=== PATIENT | male | born 1985 | race African-American/Black ===

== ENCOUNTER 2017-03-26 14:11 | Emergency (ER) | payer MEDICARE, MEDICAID ==
[2017-03-26] MEDS ORDERED: NS 0.9% 1000 ML* 1,000 ML IV ONE (14:41)
[2017-03-26 15:02] LABS: Venous Bicarbonate HCO3 22.8 mmol/L (24-28)
[2017-03-26 15:04] LABS: Hematocrit 46 % (42-52); Hemoglobin 15.6 g/dl (14.0-18.0); Mean Corpuscular HGB Conc 34 g/dl (31-36); Mean Corpuscular Hemoglobin 29 pg (27-31); Mean Corpuscular Volume 85 fL (80-94); Mean Platelet Volume 9 um3 (7.4-10.4); Red Blood Count 5.44 10^6/ul (4.0-5.4); Red Cell Distribution Width 13 % (10.5-15); White Blood Count 5.1 10^3/ul (3.5-10.8)
[2017-03-26 15:09] LABS: Urine Bilirubin Negative (Negative); Urine Glucose 3+(>=500 mg/dL) (Negative); Urine Nitrite Negative (Negative)
[2017-03-26 15:35] LABS: Albumin 3.8 g/dL (3.2-5.2); BUN/Creatinine Ratio 7.1 (8-20); C Reactive Protein 2.13 mg/L (< 5.00); Calcium 8.9 mg/dL (8.6-10.3); EGFR African American 111.3 (>60); EGFR Non-African American 86.5 (>60); Globulin 2.9 g/dL (2-4); Potassium 4.3 mmol/L (3.5-5.0); Total Bilirubin 0.4 mg/dL (0.2-1.0); Total Protein 6.7 g/dL (6.4-8.9)
[2017-03-26] MEDS ORDERED: Insulin REGULAR(*) 1 UNITS UNIT IV PUSH ONE (16:24)
[2017-03-26 17:36] VITALS: BP 127/88
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
== END 2017-03-26 17:40 | disposition home or self-care (01) ==
LOC: ED 14:11
DX: E11.65 Type 2 diabetes mellitus with hyperglycemia (principal); E78.00 Pure hypercholesterolemia, unspecified; I10 Essential (primary) hypertension; I25.2 Old myocardial infarction; Z87.891 Personal history of nicotine dependence; Z79.4 Long term (current) use of insulin
CPT/HCPCS: 36415; 80053; 81003; 82803; 83605; 85025; 86140; 96360; 96374; 99282

== ENCOUNTER 2017-07-12 22:10 | Emergency (ER) | payer MEDICARE, MEDICAID ==
[2017-07-12] MEDS ORDERED: Insulin GLARGINE(*) 1 UNITS UNIT SUBCUT ONE (22:37)
[2017-07-12] MEDS ORDERED: Insulin ASPART (NF) 100 UNIT/ML VIAL SUBCUT ONE (22:38)
[2017-07-12] MEDS ORDERED: Insulin LISPRO* 1 UNITS UNIT SUBCUT ONE (23:03)
[2017-07-12 23:18] VITALS: BP 130/90
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
== END 2017-07-12 23:18 | disposition home or self-care (01) ==
LOC: ED 22:10
DX: E11.65 Type 2 diabetes mellitus with hyperglycemia (principal); H53.8 Other visual disturbances; Z87.891 Personal history of nicotine dependence
CPT/HCPCS: 99282

== ENCOUNTER 2018-07-14 20:59 | Emergency (ER) | payer MEDICARE, MEDICAID ==
[2018-07-14] MEDS ORDERED: NS 0.9% 1000 ML** 1,000 ML IV ONE (21:25)
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
[2018-07-14] MEDS ORDERED: Iodixanol* (CONTRAST) 320 MG/ML 100 ML SDV IV ONE (21:43)
[2018-07-14 22:06] LABS: ABS Basophils 0.1 10^3/ul (0-0.2); ABS Eosinophils 0 10^3/ul (0-0.6); ABS Lymphocytes 2.6 10^3/ul (1.0-4.8); ABS Monocytes 0.5 10^3/ul (0-0.8); ABS Neutrophils 4.7 10^3/ul (1.5-7.7); ABS Nucleated RBC 0 10^3/ul; Eosinophil % 0.5 %; Hematocrit 44 % (36-46); Hemoglobin 14.8 g/dL (14.0-18.0); Lymphocyte % 32.5 %; Mean Corpuscular HGB Conc 34 g/dL (31-36); Mean Corpuscular Hemoglobin 29 pg (27-31); Mean Corpuscular Volume 85 fL (80-94); Mean Platelet Volume 8.4 fL (7.4-10.4); Nucleated Red Blood Cells % 0.1; Platelet Count 367 10^3/uL (150-450); Red Blood Count 5.18 10^6 /uL (4.18-5.48); Red Cell Distribution Width 14 % (10.5-15)
[2018-07-14 22:14] LABS: Activated Partial Thrombo Time 30.3 seconds (26.0-36.3); INR 0.98 (0.77-1.02)
[2018-07-14 22:23] LABS: Albumin 3.8 g/dL (3.2-5.2); Albumin/Globulin Ratio 1.3 (1-3); BUN/Creatinine Ratio 9.7 (8-20); EGFR African American 99.4 (>60); EGFR Non-African American 82.2 (>60); Globulin 2.9 g/dL (2-4); HDL Cholesterol 43.7 mg/dL; Potassium 3.7 mmol/L (3.5-5.0); Total Bilirubin 0.3 mg/dL (0.2-1.0); Total Protein 6.7 g/dL (6.4-8.9)
[2018-07-14] MEDS ORDERED: LORazepam INJ* 2 MG/ML 1 ML VIAL IV PUSH ONE (22:27)
[2018-07-15 00:44] VITALS: BP 121/72
== END 2018-07-15 00:44 ==
LOC: ED 20:59
DX: F41.9 Anxiety disorder, unspecified (principal); F98.5 Adult onset fluency disorder; I66.01 Occlusion and stenosis of right middle cerebral artery; I10 Essential (primary) hypertension; H53.8 Other visual disturbances; R42 Dizziness and giddiness; R25.1 Tremor, unspecified; E11.9 Type 2 diabetes mellitus without complications; Z79.4 Long term (current) use of insulin; Z79.84 Long term (current) use of oral hypoglycemic drugs; E78.00 Pure hypercholesterolemia, unspecified; J45.909 Unspecified asthma, uncomplicated; F32.9 Major depressive disorder, single episode, unspecified; Z88.8 Allergy status to other drugs, medicaments and biological substances; Z87.891 Personal history of nicotine dependence
CPT/HCPCS: 36415; 70450; 70496; 70498; 80053; 80061; 83605; 84484; 85025; 85610; 85730; 93005; 96374; 99282; J2060; Q9967

== ENCOUNTER 2019-03-29 18:22 | Emergency (ER) | payer MEDICARE, MEDICAID ==
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
[2019-03-29] MEDS ORDERED: NS 0.9% 1000 ML** 1,000 ML IV ONE (18:53)
[2019-03-29 19:03] LABS: ABS Basophils 0.1 10^3/ul (0-0.2); ABS Lymphocytes 0.6 10^3/ul (1.0-4.8); ABS Monocytes 0.8 10^3/ul (0-0.8); ABS Neutrophils 13.8 10^3/ul (1.5-7.7); Hematocrit 44 % (42-52); Hemoglobin 15.2 g/dL (14.0-18.0); Mean Corpuscular HGB Conc 35 g/dL (31-36); Mean Corpuscular Hemoglobin 29 pg (27-31); Mean Corpuscular Volume 84 fL (80-94); Mean Platelet Volume 8.7 fL (7.4-10.4); Platelet Count 314 10^3/uL (150-450); Red Blood Count 5.22 10^6 /uL (4.18-5.48); Red Cell Distribution Width 13 % (10-15); White Blood Count 15.3 10^3/uL (3.5-10.8)
[2019-03-29 19:18] LABS: Acetaminophen < 15 mcg/mL; Alcohol < 10 mg/dL (<10); Salicylate < 2.50 mg/dL (<30)
[2019-03-29 19:19] LABS: ALT 19 U/L (7-52); AST 18 U/L (13-39); Albumin 4.2 g/dL (3.2-5.2); Albumin/Globulin Ratio 1.3 (1-3); Alkaline Phosphatase 73 U/L (34-104); Anion Gap 13 mmol/L (2-11); BUN/Creatinine Ratio 11.3 (8-20); Blood Urea Nitrogen 13 mg/dL (6-24); CO2 Carbon Dioxide 23 mmol/L (22-32); Calcium 9.6 mg/dL (8.6-10.3); Chloride 101 mmol/L (101-111); EGFR African American 87.1 (>60); Globulin 3.3 g/dL (2-4); Glucose 333 mg/dL (70-100); Sodium 137 mmol/L (135-145); Total Protein 7.5 g/dL (6.4-8.9)
--- NOTE | 2019-03-29 21:59 | ED ---
Progress - Progress Note Progress Note: This pt is a sign out to Dr. Arin MD at shift change 2200 03/29/[address] Reza MD pending sobriety. Re-Evaluation - Re-Evaluation First Eval Re-Evaluation Time: 01:52 Change: Improved Comment: Pt states that he is sober and prepared to go home. He will be discharged home. Course/Dx - Diagnoses Provider Diagnoses: Substance abuse Discharge ED - Sign-Out/Discharge Documenting (check all that apply): Patient Departure - discharge, Receiving Sign-Out Receiving patient FROM: Matt Cobb - Discharge Plan Condition: Stable Disposition: HOME Patient Education Materials: Polysubstance Abuse (ED), Opioid Use Disorder (ED) Referrals: Maddy Montes MD [Primary Care Provider] - 2 Days Additional Instructions: PLEASE FOLLOW UP WITH YOUR PRIMARY CARE PROVIDER IN 1-3 DAYS AND RETURN TO THE EMERGENCY DEPARTMENT FOR ANY NEW OR WORSENING SYMPTOMS. - Billing Disposition and Condition Condition: STABLE Disposition: Home - Attestation Statements Document Initiated by Scribe: Yes Documenting Scribe: Edson Severino Provider For Whom Lacieibe is Documenting (Include Credential): Caitlin Dillard MD Scribe Attestation: IEdson, scribed for Caitlin Dillard MD on 03/30/19 at 0640. Scribe Documentation Reviewed: Yes Provider Attestation: The documentation as recorded by the Edson bedolla accurately reflects the service I personally performed and the decisions made by me, Caitlin Dillard MD Status of Scribe Document: Viewed
[2019-03-30 00:31] LABS: Urine Appearance Cloudy; Urine Bilirubin Negative (Negative); Urine Blood Negative (Negative); Urine Color Yellow; Urine Glucose 3+(>=500 mg/dL) (Negative); Urine Ketones 2+ (Negative); Urine Nitrite Negative (Negative); Urine Protein 1+(30 mg/dL) (Negative); Urine Specific Gravity 1.032 (1.010-1.030); Urine Urobilinogen Negative (Negative)
[2019-03-30 00:34] LABS: Urine Bacteria Absent (Absent); Urine Red Blood Cell Absent (Absent); Urine White Blood Cell Trace(0-5/hpf) (Absent)
[2019-03-30 00:43] LABS: Urine Benzodiazepine Screen None Detected (None Detect); Urine Opiates Screen Presumptive Positive (None Detect)
--- OUTSIDE RECORDS SUMMARY | 2019-03-30 02:03 | XMS REPORT | Continuity of Care Document ---
:1985 External Reference #:[id number] Author Name Reese Pearce MD (transmitted by agent of provider Melinda Mcgarry) Address [address] [facility] [place] [address] Problems Active Problems Provider Date Obesity Reese Pearce MD Onset: 02/13/2019 Psychogenic impotence Reese Pearce MD Onset: 02/13/2019 Mood disorder Reese Pearce MD Onset: 02/13/2019 Generalized anxiety disorder Reese Pearce MD Onset: 02/13/2019 Essential hypertension Reese Pearce MD Onset: 02/13/2019 Type II diabetes mellitus uncontrolled Reese Pearce MD Onset: 02/13/2019 Social History Type Date Description Comments Sex Unknown Tobacco Use Start: Unknown End: Unknown Patient is a former smoker Smoking Status Reviewed: 02/13/19 Patient is a former smoker Allergies, Adverse Reactions, Alerts Active Allergies Reaction Severity Comments Date Haldol 02/13/2019 Medications Active Medications SIG Qnty Indications Ordering Date Provider Cialis take 5mg before 6tabs F52.21 Reese Pearce MD 02/13/2019 5mg Tablets sexual activity Lancets Super Thin 4 times daily and 100units E11.65 Reese Pearce MD 2018 28G as needed for Thin 28G Misc diabetes mellitus Pen [place] 07/01" use four times a 100units E11.65 Reese Pearce MD 2018 day and as needed 31G X 5 mm Misc for injecting insulin for sugar diabetes mellitus. Pharmacy okay to substitute as appropriate Lisinopril 1 by mouth every 30tabs Reese Pearce MD 5mg day Tablets Seroquel 1 by mouth at at 30tabs Reese Pearce MD 100mg bedtime Tablets Humalog Fernando sliding scale: 15ml Reese Pearce MD Kwikpen 100-149 2u, 150-199 100Unit/ML 4u, 200-249 6u, Solution Pen-Inject 250-299 8u, 300-349 10u, 350-400 12u, above 400 14u and call doctor Lanmadhav Solostar inject 50 units at 15ml Reese Pearce MD nighttime 100Unit/ML Solution Pen-Inject Immunizations Description No Information Available Vital Signs Date Vital Result Comment 02/13/2019 11:41am Height 74 inches 6'2" Weight 253.50 lb Heart Rate 84 /min BP Systolic 117 mmHg BP Diastolic 84 mmHg Body Temperature 97.4 F O2 % BldC Oximetry 97 % BMI (Body Mass Index) 32.5 kg/m2 Results Description No Information Available Procedures Description No Information Available Medical Devices Description No Information Available Encounters Description No Information Available Assessments Date Code Description Provider 02/13/2019 E11.65 Type 2 diabetes mellitus with hyperglycemia Reese Pearce MD 02/13/2019 I10 Essential (primary) hypertension Reese Pearce MD 02/13/2019 F41.1 Generalized anxiety disorder Reese Pearce MD 02/13/2019 F39 Unspecified mood [affective] disorder Reese Pearce MD 02/13/2019 F52.21 Male erectile disorder Reese Pearce MD 02/13/2019 E66.9 Obesity, unspecified Reese Pearce MD Plan of Treatment Future Appointment(s):03/27/2019 9:40 am - Reese Pearce MD at [facility] - [address] - Reese Pearce MDE11.65 Type 2 diabetes mellitus with hyperglycemiaNew Medication:Lancets Super Thin 28G Thin 28G - 4 times daily and as needed for diabetes mellitusPen [place] 07/01" 31 G X 5 mm - use four times a day and as needed for injecting insulin for sugar diabetes mellitus. Pharmacy okay to substitute as appropriateComments:sliding scale: 100- 149 2U, 150-199 4U, 200-249 6U, 250-299 8U, 300-349 10U, 350-400 12U, Above 400 14U and call doctor Call use with your type of glucometer so that we can get you test strips. We willrecheck your A1c and urine for protein leakage. [facility] in [place] next May for next dilated retinal exam.Referral:Bill aSnders MD, EndocrinologyFollow up:3-4 weeks.I10 Essential (primary) hypertensionComments:Restart lisinopril 5mgF41.1 Generalized anxiety [id number] Unspecified mood [affective] disorderComments:Restart SeroquelPlease re-establish with [facility] to see your Therapist and establish with a Psychiatrist.F52.21 Male erectile disorderNew Medication:Cialis 5 mg - take 5mg before sexual [id number] Obesity, unspecifiedComments:Exercise at least 150 minutes per week (for example 30 minutes five days a week) with moderate to vigorous activity such as jogging, hiking, swimming, biking, brisk walks. Incorporate weight lifting ofmajor muscle groups at least twice a week. Eat a well balanced diet with emphasis on lean protein, leafy green vegetables, complex carbohydrates. Avoid soda and fruit juices. Continue at [employer]. Functional Status Description No Information Available Mental Status Description No Information Available Referrals Refer to Reason for Referral Status Appt Date Bill Sanders MD poorly controlled [id number] Created [address] [address] [phone]
[2019-03-30 02:44] VITALS: BP 120/75
== END 2019-03-30 02:43 | disposition home or self-care (01) ==
LOC: ED 18:22
DX: F19.10 Other psychoactive substance abuse, uncomplicated (principal); E11.9 Type 2 diabetes mellitus without complications; E78.00 Pure hypercholesterolemia, unspecified; I10 Essential (primary) hypertension; J45.909 Unspecified asthma, uncomplicated; F41.9 Anxiety disorder, unspecified; F43.10 Post-traumatic stress disorder, unspecified; Z87.891 Personal history of nicotine dependence; Z79.4 Long term (current) use of insulin; Z79.899 Other long term (current) drug therapy; Z88.8 Allergy status to other drugs, medicaments and biological substances
CPT/HCPCS: 36415; 80053; 80307; 80320; 80329; 81003; 81015; 83605; 85025; 87086; 93005; 96360; 96361; 99283; G0480

== ENCOUNTER 2019-05-16 19:03 | Emergency (ER) | payer MEDICARE, MEDICAID ==
[2019-05-16] MEDS ORDERED: NS 0.9% 1000 ML** 1,000 ML IV ONE (19:26)
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
--- OUTSIDE RECORDS SUMMARY | 2019-05-16 19:28 | XMS REPORT | Continuity of Care Document ---
:1985 External Reference #:[id number] Author Name Bill Sanders MD (transmitted by agent of provider Christina Jaime) Address [address] [place] [address] Care Team Providers Name Role Phone Reese Pearce MD - Hospitalist Care Team Information Skirt Trimmer [phone] Problems Active Problems Provider Date Obesity Reese Pearce MD Onset: 02/13/2019 Psychogenic impotence Reese Pearce MD Onset: 02/13/2019 Mood disorder Reese Pearce MD Onset: 02/13/2019 Generalized anxiety disorder Reese Pearce MD Onset: 02/13/2019 Essential hypertension Reese Pearce MD Onset: 02/13/2019 Type II diabetes mellitus uncontrolled Reese Pearce MD Onset: 02/13/2019 Social History Type Date Description Comments Sex Unknown ETOH Use Denies alcohol use Tobacco Use Start: Unknown End: Patient is a former quit 2019 Unknown smoker Recreational Drug Use Former Drug User Recreational Drug Use Formerly used Cocaine none since Mar 2018 regularly Smoking Status Reviewed: 05/16/19 Patient is a former quit 2019 smoker Exercise Type/Frequency Does not exercise Allergies, Adverse Reactions, Alerts Active Allergies Reaction Severity Comments Date Haldol muscle stiffness, airway closure 02/13/2019 Metformin diarrhea 05/16/2019 Medications Active Medications SIG Qnty Indications Ordering Date Provider Freestyle Lite test blood sugar once 100units E11.65 Bill Sanders, 2019 Blood Glucose daily and as needed MD Monitoring System Device Freestyle Lite Test test blood sugar once 100units E11.65 Bill Sanders, daily and as needed MD Strips Pioglitazone HCL take 15mg once daily 30tabs E11.65 Bill Sanders, 2019 in the morning MD 15mg Tablets Farxiga 5mg once daily in the 30tabs E11.65 Bill Sanders, 05/16/2019 5mg Tablets morning MD Glipizide ER take 1 tablet every 30tabs E11.65 Bill Sanders, 05/16/2019 10mg morning MD Tablets ER 24HR Basaglar Kwikpen inject 50 units 15ml Reese Pearce MD 02/20/2019 subcutaneously at 100Unit/ML Solution nighttime Pen-Inject Cialis take 5mg before 6tabs F52.21 Reese Pearce MD 02/13/2019 5mg Tablets sexual activity Lancets Super Thin 4 times daily and as 100units E11.65 Danyelle 02/13/2019 28G needed for diabetes Senner, DO Thin 28G Misc mellitus Pen [place] 07/01" use four times a day 100units E11.65 Reese Pearce MD 02/13 and as needed for 31G X 5 mm Misc injecting insulin for sugar diabetes mellitus. Pharmacy okay to substitute as appropriate Lisinopril 1 by mouth every day 90tabs Reese Pearce MD 5mg Tablets Seroquel 1 by mouth at at 30tabs Reese Pearce MD 100mg bedtime Tablets Novolog Flexpen sliding scale with Unknown meals 100Unit/ML Solution Pen-Inject History Medications Tresiba Flextouch qac: sliding scale: 15ml Reese Pearce MD 02/20/2019 - 100-149 2u, 150-199 05/14/2019 100Unit/ML Solution 4u, 200-249 6u, Pen-Inject 250-299 8u, 300-349 10u, 350-400 12u, above 400 14u and call doctor Immunizations Description No Information Available Vital Signs Date Vital Result Comment 05/16/2019 2:11pm Height 74 inches 6'2" Weight 253.00 lb w/ shoes Heart Rate 88 /min BP Systolic Sitting 127 mmHg BP Diastolic Sitting 75 mmHg BMI (Body Mass Index) 32.5 kg/m2 02/13/2019 11:41am Height 74 inches 6'2" Weight 253.50 lb Heart Rate 84 /min BP Systolic 117 mmHg BP Diastolic 84 mmHg Body Temperature 97.4 F O2 % BldC Oximetry 97 % BMI (Body Mass Index) 32.5 kg/m2 Results Description No Information Available Procedures Description No Information Available Medical Devices Description No Information Available Encounters Type Date Location Provider Dx Diagnosis Office Visit 02/13/2019 [facility] Internal Reese Pearce MD E11.65 Type 2 diabetes 11:20a Medicine - Suite mellitus with R hyperglycemia I10 Essential (primary) hypertension F41.1 Generalized anxiety disorder F39 Unspecified mood [affective] disorder F52.21 Male erectile disorder E66.9 Obesity, unspecified Assessments Date Code Description Provider 05/16/2019 E11.65 Type 2 diabetes mellitus with hyperglycemia Bill Sanders MD 02/13/2019 E11.65 Type 2 diabetes mellitus with hyperglycemia Reese Pearce MD 02/13/2019 I10 Essential (primary) hypertension Reese Pearce MD 02/13/2019 F41.1 Generalized anxiety disorder Reese Pearce MD 02/13/2019 F39 Unspecified mood [affective] disorder Reese Pearce MD 02/13/2019 F52.21 Male erectile disorder Reese Pearce MD 02/13/2019 E66.9 Obesity, unspecified Reese Pearce MD Plan of Treatment Future Appointment(s):08/09/2019 8:40 am - Bill Sanders MD at [facility]05/16/2019 - Bill Sanders MDE11.65 Type 2 diabetes mellitus with hyperglycemiaNew Medication:Freestyle Lite Blood Glucose Monitoring System - test blood sugar once daily and as neededFreestyle Lite Test - test blood sugar once daily and as neededPioglitazone HCL 15 mg - take 15mg once daily in the morningFarxiga 5 mg - 5mg once daily in the morningGlipizide ER 10 mg - take 1 tablet every morningNew Xrays:NM Gastric Emptying Study, Ordered: 05/16/19Instructions:1. Start pioglitazone 15mg daily in the morning. 2. Start Farxiga 5mg daily in the morning. 3. Startglipizide XL 10mg daily in the morning. 4. Continue Basaglar 50 units at bedtime. 5. Check your blood glucose once daily in the morning. 6. Reduce or eliminate carbohydrates in your diet. 7. Stop Novolog. 8. We will contact you to schedule a gastric (stomach) emptying study. 9. Blood tests today. 10. Return in 2 months for a follow-up visit. Functional Status Description No Information Available Mental Status Description No Information Available Referrals Refer to Dr Reason for Referral Status Appt Date Bill Sanders MD poorly controlled [email or web address] Sent 05/16/[address] [place] [address] [phone] Edilson Grande MD annual diabetic retinal exam. Sent [address] [place] [address] [phone]
[2019-05-16 19:53] LABS: ABS Basophils 0.1 10^3/ul (0-0.2); ABS Monocytes 0.3 10^3/ul (0-0.8); Eosinophil % 0.5 %; Hematocrit 46 % (42-52); Hemoglobin 15.8 g/dL (14.0-18.0); Lymphocyte % 36.8 %; Mean Corpuscular HGB Conc 35 g/dL (31-36); Mean Corpuscular Hemoglobin 29 pg (27-31); Mean Corpuscular Volume 83 fL (80-94); Mean Platelet Volume 8.9 fL (7.4-10.4); Nucleated Red Blood Cells % 0.1; Platelet Count 316 10^3/uL (150-450); Red Blood Count 5.53 10^6 /uL (4.18-5.48); Red Cell Distribution Width 14 % (10-15); White Blood Count 5.4 10^3/uL (3.5-10.8)
[2019-05-16 20:10] LABS: Albumin 4.2 g/dL (3.2-5.2); Albumin/Globulin Ratio 1.3 (1-3); BUN/Creatinine Ratio 15.5 (8-20); C Reactive Protein 6.79 mg/L (<8.01); Calcium 9.4 mg/dL (8.6-10.3); EGFR African American 91.6 (>60); EGFR Non-African American 75.7 (>60); Globulin 3.3 g/dL (2-4); Total Bilirubin 0.4 mg/dL (0.2-1.0); Total Protein 7.5 g/dL (6.4-8.9)
[2019-05-16] MEDS ORDERED: Insulin REGULAR(*) 1 UNITS UNIT IV PUSH ONE (20:13)
[2019-05-16 21:11] LABS: Potassium 4.5 mmol/L (3.5-5.0)
[2019-05-16 22:03] LABS: HIV 4th Generation Nonreactive (Nonreactive)
[2019-05-16 22:15] VITALS: BP 134/96
[2019-05-16 22:25] LABS: Urine Appearance Clear; Urine Bilirubin Negative (Negative); Urine Blood Negative (Negative); Urine Color Straw; Urine Glucose 3+(>=500 mg/dL) (Negative); Urine Ketones Negative (Negative); Urine Nitrite Negative (Negative); Urine Protein Negative (Negative); Urine Specific Gravity 1.031 (1.010-1.030); Urine Urobilinogen Negative (Negative)
== END 2019-05-16 22:05 | disposition home or self-care (01) ==
LOC: ED 19:03
DX: E11.65 Type 2 diabetes mellitus with hyperglycemia (principal); E78.00 Pure hypercholesterolemia, unspecified; I10 Essential (primary) hypertension; F41.9 Anxiety disorder, unspecified; F90.9 Attention-deficit hyperactivity disorder, unspecified type; Z87.891 Personal history of nicotine dependence; Z79.4 Long term (current) use of insulin; Z79.899 Other long term (current) drug therapy; Z88.8 Allergy status to other drugs, medicaments and biological substances
CPT/HCPCS: 36415; 80053; 81003; 82803; 82947; 83605; 83735; 85025; 86140; 87389; 93005; 96360; 99283

== ENCOUNTER 2019-12-11 13:54 | Inpatient (IN) ==
[2019-12-11] MEDS ORDERED: Al Hydrox/Mg Hydrox/Simet LIQ 30 ML UDC PO ONE (13:58)
[2019-12-11 15:04] LABS: ABS Basophils 0.1 10^3/ul (0-0.2); ABS Lymphocytes 1.6 10^3/ul (1.0-4.8); ABS Monocytes 0.7 10^3/ul (0-0.8); ABS Neutrophils 9.8 10^3/ul (1.5-7.7); Eosinophil % 0.1 %; Hematocrit 49 % (42-52); Hemoglobin 16.6 g/dL (14.0-18.0); Lymphocyte % 12.7 %; Mean Corpuscular HGB Conc 34 g/dL (31-36); Mean Corpuscular Hemoglobin 29 pg (27-31); Mean Corpuscular Volume 84 fL (80-94); Platelet Count 421 10^3/uL (150-450); Red Cell Distribution Width 14 % (10-15); White Blood Count 12.2 10^3/uL (3.5-10.8)
[2019-12-11 15:23] LABS: ALT 25 U/L (7-52); AST 16 U/L (13-39); Albumin/Globulin Ratio 1.5 (1-3); Alkaline Phosphatase 63 U/L (34-104); Anion Gap 12 mmol/L (2-11); BUN/Creatinine Ratio 15.7 (8-20); Blood Urea Nitrogen 20 mg/dL (6-24); CO2 Carbon Dioxide 24 mmol/L (22-32); Calcium 10.2 mg/dL (8.6-10.3); Chloride 98 mmol/L (101-111); EGFR African American 77.6 (>60); EGFR Non-African American 64.2 (>60); Globulin 3.3 g/dL (2-4); Glucose 455 mg/dL (70-100); Potassium 4.2 mmol/L (3.5-5.0); Sodium 134 mmol/L (135-145); Total Protein 8.3 g/dL (6.4-8.9)
[2019-12-11 15:27] LABS: Acetaminophen < 15 mcg/mL; Alcohol, S < 10 mg/dL (<10); Salicylate < 2.50 mg/dL (<30)
[2019-12-11 15:33] LABS: Urine Appearance Clear; Urine Bilirubin Negative (Negative); Urine Blood Negative (Negative); Urine Color Yellow; Urine Glucose 3+(>=500 mg/dL) (Negative); Urine Ketones Trace (Negative); Urine Nitrite Negative (Negative); Urine Protein Negative (Negative); Urine Specific Gravity 1.032 (1.010-1.030); Urine Urobilinogen Negative (Negative)
[2019-12-11 15:39] LABS: TSH Ultra Thyroid Stim Horm 1.16 mcIU/mL (0.34-5.60)
[2019-12-11 15:57] LABS: Urine Benzodiazepine Screen None Detected (None Detect); Urine Cannabinoids Screen None Detected (None Detect); Urine Opiates Screen None Detected (None Detect)
[2019-12-11] MEDS: Al Hydrox/Mg Hydrox/Simet LIQ 30 ML UDC PO PRN ×2 (19:31→19:37)
[2019-12-11] MEDS: Insulin GLARGINE 100 un/ml 10 ml VIAL SUBCUT SCH (22:10)
[2019-12-11] MEDS ORDERED: Dextrose 50% Syringe 50 ml 25 GM/50 ML SYRINGE IV PUSH PRN (23:23)
[2019-12-12] MEDS ORDERED: DAPAGLIFLOZIN 5 MG PO SCH (09:00)
[2019-12-12] MEDS: Al Hydrox/Mg Hydrox/Simet LIQ 30 ML UDC PO PRN ×3 (09:10→20:29)
[2019-12-12] MEDS ORDERED: Dextrose 50% Syringe 50 ml 25 GM/50 ML SYRINGE IV PUSH PRN (13:08)
[2019-12-12] MEDS: Ondansetron ODT 4 mg TAB 4 MG TAB SL PRN ×2 (15:27→22:24)
[2019-12-12] MEDS: Insulin ISOPH/REG 70/30 SUBCUT SCH (17:04)
[2019-12-12] MEDS: Insulin GLARGINE 100 un/ml 10 ml VIAL SUBCUT SCH (21:22)
[2019-12-13 07:05] LABS: ABS Eosinophils 0.1 10^3/ul (0-0.6); ABS Lymphocytes 2.5 10^3/ul (1.0-4.8); ABS Monocytes 0.4 10^3/ul (0-0.8); ABS Neutrophils 2.6 10^3/ul (1.5-7.7); Eosinophil % 1.1 %; Hematocrit 43 % (42-52); Hemoglobin 14.5 g/dL (14.0-18.0); Lymphocyte % 44.7 %; Mean Corpuscular HGB Conc 34 g/dL (31-36); Mean Corpuscular Hemoglobin 28 pg (27-31); Mean Corpuscular Volume 84 fL (80-94); Mean Platelet Volume 7.8 fL (7.4-10.4); Platelet Count 314 10^3/uL (150-450); Red Blood Count 5.11 10^6 /uL (4.18-5.48); Red Cell Distribution Width 14 % (10-15); White Blood Count 5.6 10^3/uL (3.5-10.8)
[2019-12-13 07:21] LABS: BUN/Creatinine Ratio 16.1 (8-20); Calcium 8.9 mg/dL (8.6-10.3); EGFR African American 89.8 (>60); EGFR Non-African American 74.2 (>60); HDL Cholesterol 45.1 mg/dL; Potassium 4.1 mmol/L (3.5-5.0)
[2019-12-13] MEDS ORDERED: Insulin ISOPH/REG 70/30 SUBCUT SCH (08:00)
[2019-12-13] MEDS: DAPAGLIFLOZIN 5 MG PO SCH (08:32)
[2019-12-13] MEDS: Insulin ISOPH/REG 70/30 SUBCUT SCH ×2 (08:32→17:38)
[2019-12-13] MEDS: Al Hydrox/Mg Hydrox/Simet LIQ 30 ML UDC PO PRN ×3 (08:35→19:04)
[2019-12-13] MEDS: Ondansetron ODT 4 mg TAB 4 MG TAB SL PRN ×2 (13:48→21:39)
[2019-12-13] MEDS: Insulin GLARGINE 100 un/ml 10 ml VIAL SUBCUT SCH (21:35)
[2019-12-14] MEDS: Insulin ISOPH/REG 70/30 SUBCUT SCH ×2 (09:10→17:22)
[2019-12-14] MEDS: DAPAGLIFLOZIN 5 MG PO SCH (09:11)
[2019-12-14] MEDS: Al Hydrox/Mg Hydrox/Simet LIQ 30 ML UDC PO PRN ×2 (10:48→17:01)
[2019-12-14] MEDS: Ondansetron ODT 4 mg TAB 4 MG TAB SL PRN (13:34)
[2019-12-14] MEDS: Insulin GLARGINE 100 un/ml 10 ml VIAL SUBCUT SCH (21:33)
[2019-12-15] MEDS: DAPAGLIFLOZIN 5 MG PO SCH (09:15)
[2019-12-15] MEDS: Insulin ISOPH/REG 70/30 SUBCUT SCH ×2 (09:20→17:35)
[2019-12-15] MEDS: Insulin GLARGINE 100 un/ml 10 ml VIAL SUBCUT SCH (21:48)
[2019-12-16] MEDS: Nicotine GUM 4MG FRUIT FLAVOR PO PRN (08:28)
[2019-12-16] MEDS: Insulin ISOPH/REG 70/30 SUBCUT SCH (08:33)
[2019-12-16] MEDS: DAPAGLIFLOZIN 5 MG PO SCH (09:49)
[2019-12-16] MEDS ORDERED: Insulin ISOPH/REG 70/30 SUBCUT SCH (17:00)
[2019-12-16] MEDS ORDERED: Insulin GLARGINE 100 un/ml 10 ml VIAL SUBCUT SCH ×2 (21:00)
[2019-12-17] MEDS: Nicotine GUM 4MG FRUIT FLAVOR PO PRN ×2 (07:29→09:28)
[2019-12-17 08:38] VITALS: BP 125/82
[2019-12-17] MEDS: Insulin ISOPH/REG 70/30 SUBCUT SCH (09:04)
[2019-12-17] MEDS: DAPAGLIFLOZIN 5 MG PO SCH (09:04)
== END 2019-12-17 13:35 | disposition home or self-care (01) ==
LOC: ED 13:54 → BSU 17:34
PROVIDERS: ADMIT Psychiatry & Neurology Psychiatry; ATTEND Psychiatry & Neurology Psychiatry

== ENCOUNTER 2020-07-03 14:00 | Inpatient (IN) ==
[2020-07-03] MEDS ORDERED: NS 0.9% 1000 ml BAG 1,000 ML IV ONE ×2 (15:02→15:37)
[2020-07-03 15:35] LABS: Albumin 4.8 g/dL (3.2-5.2); CO2 Carbon Dioxide 24 mmol/L (22-32); Calcium 11.6 mg/dL (8.6-10.3); Chloride 96 mmol/L (101-111); Sodium 140 mmol/L (135-145)
[2020-07-03] MEDS ORDERED: Ondansetron 4 mg VIAL 2 MG/ML 2 ml VIAL IV ONE (15:37)
[2020-07-03] MEDS ORDERED: Ondansetron ODT 4 mg TAB 4 MG TAB SL ONE (15:39)
[2020-07-03 15:41] LABS: ALT 28 U/L (7-52); Albumin/Globulin Ratio 1.4 (1-3); Alkaline Phosphatase 74 U/L (34-104); BUN/Creatinine Ratio 14.2 (8-20); Blood Urea Nitrogen 15 mg/dL (6-24); EGFR African American 95.1 (>60); EGFR Non-African American 78.6 (>60); Globulin 3.5 g/dL (2-4); Glucose 438 mg/dL (70-100); Total Protein 8.3 g/dL (6.4-8.9); Troponin I 0.01 ng/mL (<0.03)
[2020-07-03 15:48] LABS: Anion Gap 20 mmol/L (2-11)
[2020-07-03 16:14] LABS: ABS Basophils 0.1 10^3/ul (0-0.2); ABS Eosinophils 0.1 10^3/ul (0-0.6); ABS Lymphocytes 1.6 10^3/ul (1.0-4.8); ABS Monocytes 0.6 10^3/ul (0-0.8); ABS Neutrophils 14.9 10^3/ul (1.5-7.7); Eosinophil % 0.3 %; Hematocrit 49 % (42-52); Hemoglobin 16.4 g/dL (14.0-18.0); Mean Corpuscular HGB Conc 34 g/dL (31-36); Mean Corpuscular Hemoglobin 28 pg (27-31); Mean Corpuscular Volume 84 fL (80-94); Mean Platelet Volume 8.9 fL (7.4-10.4); Platelet Count 443 10^3/uL (150-450); Red Blood Count 5.86 10^6 /uL (4.18-5.48); Red Cell Distribution Width 14 % (10-15); White Blood Count 17.3 10^3/uL (3.5-10.8)
[2020-07-03 16:28] LABS: Potassium Redraw 5.1 mmol/L (3.5-5.0)
[2020-07-03] MEDS ORDERED: Lactated Ringers 1000 ml BAG 1,000 ML IV SCH (17:00)
[2020-07-03] MEDS ORDERED: Insulin Infusion 100unit/100mL 100 UNIT/100 ML BAG IV SCH (18:00)
[2020-07-03] MEDS ORDERED: Pantoprazole VIAL 40 MG VIAL IV SCH (20:00)
[2020-07-03 20:05] LABS: Calcium 9.6 mg/dL (8.6-10.3); EGFR African American 101.7 (>60); EGFR Non-African American 84.1 (>60); Phosphorus 4.8 mg/dL (2.5-5.0); Potassium 4.5 mmol/L (3.5-5.0)
[2020-07-03 20:09] LABS: Urine Appearance Clear; Urine Bilirubin Negative (Negative); Urine Blood Negative (Negative); Urine Color Straw; Urine Glucose 3+(>=500 mg/dL) (Negative); Urine Ketones 2+ (Negative); Urine Nitrite Negative (Negative); Urine Protein Negative (Negative); Urine Specific Gravity 1.031 (1.010-1.030); Urine Urobilinogen Negative (Negative)
[2020-07-03 20:13] LABS: Urine Benzodiazepine Screen None Detected (None Detect); Urine Cannabinoids Screen None Detected (None Detect); Urine Opiates Screen None Detected (None Detect)
[2020-07-03] MEDS: KCL 10 MEQ/50 ML IVPREMIX 10 MEQ/50 ML BAG IV SCH ×2 (20:13→21:41)
[2020-07-03 20:14] LABS: Troponin I 0.01 ng/mL (<0.03)
[2020-07-03 23:50] LABS: BUN/Creatinine Ratio 13.2 (8-20); Calcium 9.6 mg/dL (8.6-10.3); EGFR African American 95.1 (>60); EGFR Non-African American 78.6 (>60); Potassium 4.1 mmol/L (3.5-5.0)
[2020-07-03] MEDS ORDERED: Insulin GLARGINE 100 un/ml 10 ml VIAL SUBCUT ONE (23:58)
[2020-07-04] MEDS ORDERED: D5W 1/2 NS 1000 ml BAG 1,000 ML IV SCH
[2020-07-04 00:01] LABS: Troponin I 0.01 ng/mL (<0.03)
[2020-07-04] MEDS: Ondansetron 4 mg VIAL 2 MG/ML 2 ml VIAL IV PRN ×2 (00:25→18:18)
[2020-07-04] MEDS: KCL 10 MEQ/50 ML IVPREMIX 10 MEQ/50 ML BAG IV SCH (00:25)
[2020-07-04 02:49] LABS: ALT 18 U/L (7-52); Albumin 3.7 g/dL (3.2-5.2); Albumin/Globulin Ratio 1.3 (1-3); Alkaline Phosphatase 48 U/L (34-104); BUN/Creatinine Ratio 12.5 (8-20); Blood Urea Nitrogen 13 mg/dL (6-24); CO2 Carbon Dioxide 27 mmol/L (22-32); Calcium 8.9 mg/dL (8.6-10.3); Chloride 100 mmol/L (101-111); EGFR African American 97.2 (>60); EGFR Non-African American 80.4 (>60); Globulin 2.8 g/dL (2-4); Glucose 341 mg/dL (70-100); Sodium 133 mmol/L (135-145); Total Protein 6.5 g/dL (6.4-8.9)
[2020-07-04 03:11] LABS: Anion Gap 6 mmol/L (2-11)
[2020-07-04 03:55] LABS: Potassium Redraw 4.1 mmol/L (3.5-5.0)
[2020-07-04] MEDS ORDERED: Dextrose 50% Syringe 50 ml 25 GM/50 ML SYRINGE IV PUSH PRN ×2 (04:08→13:37)
[2020-07-04 05:39] LABS: BUN/Creatinine Ratio 13.7 (8-20); Calcium 8.9 mg/dL (8.6-10.3); EGFR African American 99.4 (>60); EGFR Non-African American 82.2 (>60); Potassium 4.4 mmol/L (3.5-5.0)
[2020-07-04 06:34] LABS: Glucose Confirmatory 407 mg/dL (70-100)
[2020-07-04 08:10] LABS: ABS Basophils 0.1 10^3/ul (0-0.2); ABS Lymphocytes 2.4 10^3/ul (1.0-4.8); ABS Monocytes 0.8 10^3/ul (0-0.8); ABS Neutrophils 7.7 10^3/ul (1.5-7.7); Eosinophil % 0.2 %; Hematocrit 41 % (42-52); Hemoglobin 13.5 g/dL (14.0-18.0); Mean Corpuscular HGB Conc 33 g/dL (31-36); Mean Corpuscular Hemoglobin 28 pg (27-31); Mean Corpuscular Volume 84 fL (80-94); Mean Platelet Volume 8.4 fL (7.4-10.4); Nucleated Red Blood Cells % 0.1; Platelet Count 313 10^3/uL (150-450); Red Blood Count 4.83 10^6 /uL (4.18-5.48); Red Cell Distribution Width 14 % (10-15); White Blood Count 10.9 10^3/uL (3.5-10.8)
[2020-07-04 08:31] LABS: BUN/Creatinine Ratio 13.2 (8-20); EGFR African American 95.1 (>60); EGFR Non-African American 78.6 (>60); Magnesium 1.8 mg/dL (1.9-2.7); Potassium 4.1 mmol/L (3.5-5.0)
[2020-07-04] MEDS ORDERED: Pantoprazole VIAL 40 MG VIAL IV SCH (09:08)
[2020-07-04] MEDS: Insulin GLARGINE 100 un/ml 10 ml VIAL SUBCUT SCH (09:10)
[2020-07-04] MEDS ORDERED: Magnesium Sulfate 2 gm BAG 2 GM/50 ML BAG IVPB ONE (09:44)
[2020-07-04] MEDS: Calcium Carb (TUMS) 500 mg CHEW TAB PO PRN ×3 (10:43→22:10)
[2020-07-05] MEDS: Calcium Carb (TUMS) 500 mg CHEW TAB PO PRN ×3 (05:51→15:38)
[2020-07-05] MEDS: Ondansetron 4 mg VIAL 2 MG/ML 2 ml VIAL IV PRN ×3 (05:51→22:44)
[2020-07-05 07:05] LABS: ABS Lymphocytes 3.1 10^3/ul (1.0-4.8); ABS Monocytes 0.4 10^3/ul (0-0.8); ABS Neutrophils 3.7 10^3/ul (1.5-7.7); Eosinophil % 0.3 %; Hematocrit 42 % (42-52); Lymphocyte % 42.8 %; Mean Corpuscular HGB Conc 33 g/dL (31-36); Mean Corpuscular Hemoglobin 28 pg (27-31); Mean Corpuscular Volume 85 fL (80-94); Mean Platelet Volume 8.6 fL (7.4-10.4); Platelet Count 320 10^3/uL (150-450); Red Cell Distribution Width 14 % (10-15); White Blood Count 7.2 10^3/uL (3.5-10.8)
[2020-07-05 07:18] LABS: BUN/Creatinine Ratio 13.2 (8-20); Calcium 8.6 mg/dL (8.6-10.3); EGFR African American 113.4 (>60); EGFR Non-African American 93.7 (>60); Magnesium 1.7 mg/dL (1.9-2.7); Potassium 3.7 mmol/L (3.5-5.0)
[2020-07-05] MEDS: Insulin GLARGINE 100 un/ml 10 ml VIAL SUBCUT SCH (08:20)
[2020-07-05] MEDS ORDERED: Magnesium Sulfate IV 3 GM in NS 0.9% 100 ml BAG 100 ML IVPB ONE (08:45)
[2020-07-05 16:58] LABS: Albumin 3.2 g/dL (3.2-5.2); Albumin/Globulin Ratio 1.1 (1-3); BUN/Creatinine Ratio 11.2 (8-20); Calcium 8.5 mg/dL (8.6-10.3); EGFR African American 116.4 (>60); EGFR Non-African American 96.2 (>60); Globulin 2.8 g/dL (2-4); Potassium 4.1 mmol/L (3.5-5.0); Total Bilirubin 0.5 mg/dL (0.2-1.0)
[2020-07-05] MEDS ORDERED: Iodixanol (CONTRAST) 320 MG/ML 100 ML SDV IV SCH (19:46)
[2020-07-06] MEDS: Calcium Carb (TUMS) 500 mg CHEW TAB PO PRN ×4 (02:04→21:21)
[2020-07-06 07:28] LABS: BUN/Creatinine Ratio 9.9 (8-20); Calcium 8.6 mg/dL (8.6-10.3); EGFR African American 129.7 (>60); EGFR Non-African American 107.2 (>60)
[2020-07-06] MEDS: Ondansetron 4 mg VIAL 2 MG/ML 2 ml VIAL IV PRN ×2 (08:52→16:28)
[2020-07-06] MEDS: Insulin GLARGINE 100 un/ml 10 ml VIAL SUBCUT SCH (08:53)
[2020-07-06 11:41] LABS: Magnesium 1.9 mg/dL (1.9-2.7)
[2020-07-07] MEDS: Ondansetron 4 mg VIAL 2 MG/ML 2 ml VIAL IV PRN (08:25)
[2020-07-07] MEDS: Insulin GLARGINE 100 un/ml 10 ml VIAL SUBCUT SCH (08:25)
[2020-07-07 20:12] VITALS: BP 141/83
== END 2020-07-07 20:20 | disposition home or self-care (01) | DRG 638 ==
LOC: ED 14:00 → ICU 16:53 → MED 07-04 16:31
PROVIDERS: ADMIT Internal Medicine; ATTEND Student in an Organized Health Care Education/Training Program

== ENCOUNTER 2020-07-11 00:52 | Inpatient (IN) ==
[2020-07-11 06:22] LABS: ABS Basophils 0.1 10^3/ul (0-0.2); ABS Eosinophils 0.1 10^3/ul (0-0.6); ABS Lymphocytes 2.2 10^3/ul (1.0-4.8); ABS Monocytes 0.5 10^3/ul (0-0.8); ABS Neutrophils 3.5 10^3/ul (1.5-7.7); Eosinophil % 0.8 %; Hematocrit 43 % (42-52); Hemoglobin 14.7 g/dL (14.0-18.0); Lymphocyte % 34.4 %; Mean Corpuscular HGB Conc 34 g/dL (31-36); Mean Corpuscular Hemoglobin 29 pg (27-31); Mean Corpuscular Volume 84 fL (80-94); Mean Platelet Volume 8.2 fL (7.4-10.4); Platelet Count 390 10^3/uL (150-450); Red Cell Distribution Width 13 % (10-15); White Blood Count 6.3 10^3/uL (3.5-10.8)
[2020-07-11 06:39] LABS: ALT 17 U/L (7-52); AST 15 U/L (13-39); Albumin 3.9 g/dL (3.2-5.2); Albumin/Globulin Ratio 1.4 (1-3); Alkaline Phosphatase 58 U/L (34-104); Anion Gap 8 mmol/L (2-11); Blood Urea Nitrogen 14 mg/dL (6-24); CO2 Carbon Dioxide 27 mmol/L (22-32); Calcium 9.1 mg/dL (8.6-10.3); Chloride 98 mmol/L (101-111); EGFR African American 84.9 (>60); EGFR Non-African American 70.1 (>60); Globulin 2.8 g/dL (2-4); Glucose 482 mg/dL (70-100); Potassium 3.5 mmol/L (3.5-5.0); Sodium 133 mmol/L (135-145); Total Protein 6.7 g/dL (6.4-8.9)
[2020-07-11 06:40] LABS: Acetaminophen < 15 mcg/mL; Alcohol, S < 10 mg/dL (<10); Salicylate < 2.50 mg/dL (<30)
[2020-07-11 06:55] LABS: TSH Ultra Thyroid Stim Horm 1.52 mcIU/mL (0.34-5.60)
[2020-07-11] MEDS ORDERED: Al Hydrox/Mg Hydrox/Simet LIQ 30 ML UDC PO PRN (09:51)
[2020-07-11] MEDS ORDERED: Dextrose 50% Syringe 50 ml 25 GM/50 ML SYRINGE IV PUSH PRN (11:00)
[2020-07-11] MEDS: Insulin GLARGINE 100 un/ml 10 ml VIAL SUBCUT SCH (12:59)
[2020-07-12] MEDS: Insulin GLARGINE 100 un/ml 10 ml VIAL SUBCUT SCH (09:03)
[2020-07-12] MEDS: Vitamin THERAPEUTIC TAB PO SCH (09:03)
[2020-07-12 09:04] LABS: HDL Cholesterol 36.7 mg/dL
[2020-07-13] MEDS: Vitamin THERAPEUTIC TAB PO SCH (09:00)
[2020-07-13] MEDS ORDERED: Insulin GLARGINE 100 un/ml 10 ml VIAL SUBCUT SCH (09:00)
[2020-07-13] MEDS: Insulin GLARGINE 100 un/ml 10 ml VIAL SUBCUT SCH (09:02)
[2020-07-14] MEDS: Insulin GLARGINE 100 un/ml 10 ml VIAL SUBCUT SCH (09:15)
[2020-07-14] MEDS: Vitamin THERAPEUTIC TAB PO SCH (09:16)
[2020-07-15] MEDS: Insulin GLARGINE 100 un/ml 10 ml VIAL SUBCUT SCH (09:21)
[2020-07-15] MEDS: Vitamin THERAPEUTIC TAB PO SCH (09:22)
[2020-07-15 09:45] VITALS: BP 108/73
== END 2020-07-15 11:25 | disposition home or self-care (01) | DRG 897 ==
LOC: ED 00:52 → BSU 11:18
PROVIDERS: ADMIT Psychiatry & Neurology Psychiatry; ATTEND Psychiatry & Neurology Psychiatry

== ENCOUNTER 2020-09-26 14:43 | Inpatient (IN) ==
[2020-09-26] MEDS ORDERED: NS 0.9% 1000 ml BAG 1,000 ML IV ONE ×2 (14:57→16:04)
[2020-09-26 15:04] LABS: ABS Basophils 0.1 10^3/ul (0-0.2); ABS Lymphocytes 1.7 10^3/ul (1.0-4.8); ABS Monocytes 0.9 10^3/ul (0-0.8); Hematocrit 47 % (42-52); Hemoglobin 15.8 g/dL (14.0-18.0); Lymphocyte % 13.2 %; Mean Corpuscular HGB Conc 34 g/dL (31-36); Mean Corpuscular Hemoglobin 29 pg (27-31); Mean Corpuscular Volume 84 fL (80-94); Mean Platelet Volume 9.3 fL (7.4-10.4); Nucleated Red Blood Cells % 0.1; Platelet Count 345 10^3/uL (150-450); Red Blood Count 5.53 10^6 /uL (4.18-5.48); Red Cell Distribution Width 14 % (10-15); White Blood Count 12.6 10^3/uL (3.5-10.8)
[2020-09-26 15:23] LABS: Troponin I 0.02 ng/mL (<0.03)
[2020-09-26 15:25] LABS: Urine Appearance Clear; Urine Bilirubin Negative (Negative); Urine Blood Negative (Negative); Urine Color Straw; Urine Glucose 3+(>=500 mg/dL) (Negative); Urine Ketones 1+ (Negative); Urine Nitrite Negative (Negative); Urine Protein Negative (Negative); Urine Specific Gravity 1.027 (1.002-1.030); Urine Urobilinogen Negative (Negative)
[2020-09-26 15:47] LABS: Albumin 4.4 g/dL (3.2-5.2); Albumin/Globulin Ratio 1.3 (1-3); C Reactive Protein 22.98 mg/L (<8.01); Calcium 9.5 mg/dL (8.6-10.3); EGFR African American 73.2 (>60); EGFR Non-African American 60.5 (>60); Globulin 3.3 g/dL (2-4); Magnesium 2.1 mg/dL (1.9-2.7); Total Bilirubin 0.6 mg/dL (0.2-1.0); Total Protein 7.7 g/dL (6.4-8.9)
[2020-09-26] MEDS ORDERED: Insulin Infusion 100unit/100mL 100 UNIT/100 ML BAG IV ONE (16:03)
[2020-09-26] MEDS ORDERED: Ondansetron 4 mg VIAL 2 MG/ML 2 ml VIAL IV ONE (16:48)
[2020-09-26] MEDS ORDERED: Dextrose 50% Syringe 50 ml 25 GM/50 ML SYRINGE IV PUSH PRN (21:06)
[2020-09-27 02:26] LABS: Calcium 8.5 mg/dL (8.6-10.3); EGFR African American 106.6 (>60); EGFR Non-African American 88.1 (>60)
[2020-09-27 02:54] LABS: Potassium 4.6 mmol/L (3.5-5.0)
[2020-09-27 04:30] LABS: Glucose Confirmatory 425 mg/dL (70-100)
[2020-09-27] MEDS ORDERED: Insulin GLARGINE 100 un/ml 10 ml VIAL SUBCUT SCH (09:00)
[2020-09-27 09:06] LABS: ABS Basophils 0.1 10^3/ul (0-0.2); ABS Lymphocytes 2.3 10^3/ul (1.0-4.8); ABS Monocytes 0.8 10^3/ul (0-0.8); ABS Neutrophils 8.6 10^3/ul (1.5-7.7); Eosinophil % 0.1 %; Hematocrit 43 % (42-52); Hemoglobin 14.6 g/dL (14.0-18.0); Lymphocyte % 19.8 %; Mean Corpuscular HGB Conc 34 g/dL (31-36); Mean Corpuscular Hemoglobin 28 pg (27-31); Mean Corpuscular Volume 83 fL (80-94); Platelet Count 302 10^3/uL (150-450); Red Blood Count 5.16 10^6 /uL (4.18-5.48); Red Cell Distribution Width 13 % (10-15); White Blood Count 11.8 10^3/uL (3.5-10.8)
[2020-09-27 09:26] LABS: Albumin 3.8 g/dL (3.2-5.2); Albumin/Globulin Ratio 1.2 (1-3); Calcium 9.2 mg/dL (8.6-10.3); EGFR African American 97.2 (>60); EGFR Non-African American 80.4 (>60); Globulin 3.2 g/dL (2-4); Magnesium 1.9 mg/dL (1.9-2.7); Potassium 4.1 mmol/L (3.5-5.0); Total Bilirubin 0.6 mg/dL (0.2-1.0)
[2020-09-27] MEDS ORDERED: Polyethylene Glycol 3350 17 GM PACKET PO PRN (15:41)
[2020-09-27] MEDS: Magnesium Hydroxide LIQ 30 ML UDC PO PRN (16:36)
[2020-09-27] MEDS: Senna TAB 8.6 mg TAB PO PRN (17:32)
[2020-09-27] MEDS: Calcium Carb (TUMS) 500 mg CHEW TAB PO PRN (20:24)
[2020-09-28] MEDS: Ondansetron 4 mg VIAL 2 MG/ML 2 ml VIAL IV PRN ×2 (04:27→20:46)
[2020-09-28] MEDS: Calcium Carb (TUMS) 500 mg CHEW TAB PO PRN ×2 (04:28→18:08)
[2020-09-28 05:27] LABS: ABS Basophils 0.1 10^3/ul (0-0.2); ABS Lymphocytes 1.6 10^3/ul (1.0-4.8); ABS Monocytes 0.6 10^3/ul (0-0.8); ABS Neutrophils 5.8 10^3/ul (1.5-7.7); Eosinophil % 0.1 %; Hematocrit 42 % (42-52); Mean Corpuscular HGB Conc 33 g/dL (31-36); Mean Corpuscular Hemoglobin 28 pg (27-31); Mean Corpuscular Volume 85 fL (80-94); Mean Platelet Volume 8.8 fL (7.4-10.4); Platelet Count 277 10^3/uL (150-450); Red Blood Count 4.97 10^6 /uL (4.18-5.48); Red Cell Distribution Width 14 % (10-15)
[2020-09-28] MEDS ORDERED: HYDROmorphone 0.5 MG/0.5 ML SYRINGE IV SLOW PU ONE (05:37)
[2020-09-28 05:45] LABS: Calcium 8.7 mg/dL (8.6-10.3); EGFR African American 110.6 (>60); EGFR Non-African American 91.4 (>60); Potassium 4.2 mmol/L (3.5-5.0)
[2020-09-28 06:18] LABS: Urine Benzodiazepine Screen None Detected (None Detect); Urine Cannabinoids Screen None Detected (None Detect); Urine Opiates Screen None Detected (None Detect)
[2020-09-28] MEDS: Insulin ISOPH/REG 70/30 SUBCUT SCH ×2 (09:09→16:36)
[2020-09-28] MEDS ORDERED: Iodixanol (CONTRAST) 320 MG/ML 100 ML SDV IV ONE (10:41)
[2020-09-28] MEDS: Senna TAB 8.6 mg TAB PO PRN (20:45)
[2020-09-28] MEDS: Magnesium Hydroxide LIQ 30 ML UDC PO PRN (20:46)
[2020-09-29] MEDS: Calcium Carb (TUMS) 500 mg CHEW TAB PO PRN ×2 (03:40→20:30)
[2020-09-29] MEDS: Ondansetron 4 mg VIAL 2 MG/ML 2 ml VIAL IV PRN (03:40)
[2020-09-29] MEDS: Magnesium Hydroxide LIQ 30 ML UDC PO PRN (08:55)
[2020-09-29] MEDS: Insulin ISOPH/REG 70/30 SUBCUT SCH ×2 (08:57→18:29)
[2020-09-29] MEDS: Sucralfate 1 gm SUSP 1 GM/10 ML UDC PO SCH (18:30)
[2020-09-29] MEDS: Senna TAB 8.6 mg TAB PO PRN (20:31)
[2020-09-30] MEDS: Insulin ISOPH/REG 70/30 SUBCUT SCH (09:07)
[2020-09-30] MEDS: Sucralfate 1 gm SUSP 1 GM/10 ML UDC PO SCH ×3 (09:13→17:02)
[2020-09-30 14:45] VITALS: BP 117/69
== END 2020-09-30 16:50 | disposition home or self-care (01) ==
LOC: ED 14:43 → MEDTELE 09-27 01:30
PROVIDERS: ADMIT Internal Medicine; ATTEND Internal Medicine

== ENCOUNTER 2020-11-09 17:45 | Inpatient (IN) ==
[2020-11-09] MEDS ORDERED: Lactated Ringers 1000 ml BAG 1,000 ML IV ONE ×2 (17:56→18:44)
[2020-11-09 18:17] LABS: ABS Eosinophils 0.1 10^3/ul (0-0.6); ABS Lymphocytes 1.3 10^3/ul (1.0-4.8); ABS Monocytes 0.4 10^3/ul (0-0.8); ABS Neutrophils 5.3 10^3/ul (1.5-7.7); Eosinophil % 0.7 %; Hematocrit 46 % (42-52); Hemoglobin 15.3 g/dL (14.0-18.0); Lymphocyte % 18.7 %; Mean Corpuscular HGB Conc 33 g/dL (31-36); Mean Corpuscular Hemoglobin 29 pg (27-31); Mean Corpuscular Volume 87 fL (80-94); Platelet Count 307 10^3/uL (150-450); Red Blood Count 5.24 10^6 /uL (4.18-5.48); Red Cell Distribution Width 14 % (10-15); White Blood Count 7.1 10^3/uL (3.5-10.8)
[2020-11-09 18:31] LABS: Venous Bicarbonate HCO3 25.6 mmol/L (24-28)
[2020-11-09 18:35] LABS: ALT 34 U/L (7-52); Albumin 3.9 g/dL (3.2-5.2); Albumin/Globulin Ratio 1.1 (1-3); Alkaline Phosphatase 87 U/L (35-149); Blood Urea Nitrogen 18 mg/dL (6-24); C Reactive Protein 8.68 mg/L (<8.01); CO2 Carbon Dioxide 24 mmol/L (22-32); Calcium 9.2 mg/dL (8.6-10.3); Chloride 87 mmol/L (101-111); Creatine Kinase 325 U/L (10-223); EGFR African American 70.2 (>60); Globulin 3.4 g/dL (2-4); Sodium 121 mmol/L (135-145); Total Protein 7.3 g/dL (6.4-8.9)
[2020-11-09 18:45] LABS: Anion Gap 10 mmol/L (2-11)
[2020-11-09 18:56] LABS: Urine Appearance Clear; Urine Bilirubin Negative (Negative); Urine Blood Negative (Negative); Urine Color Colorless; Urine Glucose 3+(>=500 mg/dL) (Negative); Urine Ketones Negative (Negative); Urine Nitrite Negative (Negative); Urine Protein Negative (Negative); Urine Specific Gravity 1.024 (1.002-1.030); Urine Urobilinogen Negative (Negative)
[2020-11-09 19:18] LABS: Urine Benzodiazepine Screen None Detected (None Detect); Urine Cannabinoids Screen None Detected (None Detect); Urine Opiates Screen None Detected (None Detect)
[2020-11-09 19:51] LABS: Glucose 942 mg/dL (70-100)
[2020-11-09 20:08] LABS: AST Redraw 27 U/L (13-39); Potassium Redraw 4.9 mmol/L (3.5-5.0)
[2020-11-09 20:33] LABS: Glucose Confirmatory 792 mg/dL (70-100)
[2020-11-09] MEDS ORDERED: Insulin GLARGINE 100 un/ml 10 ml VIAL SUBCUT SCH (23:45)
[2020-11-10] MEDS ORDERED: Insulin GLARGINE 100 un/ml 10 ml VIAL SUBCUT ONE (00:08)
[2020-11-10 03:29] LABS: TSH Ultra Thyroid Stim Horm 0.81 mcIU/mL (0.34-5.60)
[2020-11-10] MEDS: Lactated Ringers 1000 ml BAG 1,000 ML IV SCH ×2 (04:03→17:24)
[2020-11-10] MEDS: Heparin 5000 UNITS/ML 1 mL VIAL SUBCUT SCH ×3 (05:34→21:23)
[2020-11-10 06:26] LABS: ABS Eosinophils 0.1 10^3/ul (0-0.6); ABS Monocytes 0.4 10^3/ul (0-0.8); ABS Neutrophils 4.3 10^3/ul (1.5-7.7); Eosinophil % 1.5 %; Hematocrit 42 % (42-52); Hemoglobin 14.3 g/dL (14.0-18.0); Lymphocyte % 29.3 %; Mean Corpuscular HGB Conc 34 g/dL (31-36); Mean Corpuscular Hemoglobin 29 pg (27-31); Mean Corpuscular Volume 84 fL (80-94); Mean Platelet Volume 9.4 fL (7.4-10.4); Platelet Count 308 10^3/uL (150-450); Red Cell Distribution Width 14 % (10-15); White Blood Count 6.7 10^3/uL (3.5-10.8)
[2020-11-10 06:36] LABS: Calcium 8.8 mg/dL (8.6-10.3); EGFR African American 90.2 (>60); EGFR Non-African American 74.5 (>60); Magnesium 1.6 mg/dL (1.9-2.7); Potassium 3.8 mmol/L (3.5-5.0)
[2020-11-10] MEDS ORDERED: Magnesium Sulfate 2 gm BAG 2 GM/50 ML BAG IVPB ONE (07:42)
[2020-11-10 10:11] LABS: Urine Creatinine Concentration 146.06 mg/dL; Urine Potassium Concentration 17.3 mmol/L
[2020-11-10] MEDS ORDERED: Insulin ISOPH/REG 70/30 SUBCUT SCH (17:00)
[2020-11-10] MEDS: Insulin ISOPH/REG 70/30 SUBCUT SCH (17:21)
[2020-11-11] MEDS: Heparin 5000 UNITS/ML 1 mL VIAL SUBCUT SCH ×3 (05:52→21:34)
[2020-11-11] MEDS: Insulin ISOPH/REG 70/30 SUBCUT SCH ×2 (09:03→18:29)
[2020-11-11] MEDS ORDERED: Insulin ISOPH/REG 70/30 SUBCUT ONE (18:30)
[2020-11-12 05:09] LABS: ABS Eosinophils 0.1 10^3/ul (0-0.6); ABS Lymphocytes 1.7 10^3/ul (1.0-4.8); ABS Monocytes 0.3 10^3/ul (0-0.8); ABS Neutrophils 3.3 10^3/ul (1.5-7.7); Hematocrit 44 % (42-52); Hemoglobin 14.4 g/dL (14.0-18.0); Lymphocyte % 31.9 %; Mean Corpuscular HGB Conc 33 g/dL (31-36); Mean Corpuscular Hemoglobin 29 pg (27-31); Mean Corpuscular Volume 86 fL (80-94); Mean Platelet Volume 9.5 fL (7.4-10.4); Platelet Count 265 10^3/uL (150-450); Red Blood Count 5.04 10^6 /uL (4.18-5.48); Red Cell Distribution Width 14 % (10-15); White Blood Count 5.4 10^3/uL (3.5-10.8)
[2020-11-12] MEDS: Heparin 5000 UNITS/ML 1 mL VIAL SUBCUT SCH ×3 (05:22→23:25)
[2020-11-12 05:35] LABS: Calcium 8.5 mg/dL (8.6-10.3); EGFR African American 105.4 (>60); EGFR Non-African American 87.1 (>60); Magnesium 1.7 mg/dL (1.9-2.7); Potassium 4.1 mmol/L (3.5-5.0)
[2020-11-12] MEDS ORDERED: Insulin ISOPH/REG 70/30 SUBCUT SCH (08:00)
[2020-11-12] MEDS: Al Hydrox/Mg Hydrox/Simet LIQ 30 ML UDC PO PRN ×2 (10:08→20:54)
[2020-11-12] MEDS ORDERED: Magnesium Sulfate IV 3 GM in NS 0.9% 100 ml BAG 100 ML IVPB ONE (10:25)
[2020-11-12] MEDS ORDERED: Dextrose 50% Syringe 50 ml 25 GM/50 ML SYRINGE IV PUSH PRN ×2 (12:36→12:37)
[2020-11-12] MEDS ORDERED: Insulin GLARGINE 100 un/ml 10 ml VIAL SUBCUT SCH (21:00)
[2020-11-13] MEDS: Heparin 5000 UNITS/ML 1 mL VIAL SUBCUT SCH ×2 (06:31→12:57)
[2020-11-13 11:48] VITALS: BP 145/76
[2020-11-13] MEDS ORDERED: Insulin GLARGINE 100 un/ml 10 ml VIAL SUBCUT SCH (21:00)
== END 2020-11-13 14:50 | disposition home or self-care (01) | DRG 638 ==
LOC: ED 17:45 → MED 17:45
PROVIDERS: ADMIT Pediatrics; ATTEND Hospitalist

== ENCOUNTER 2021-02-02 01:59 | Inpatient (IN) ==
[2021-02-02 03:16] LABS: ABS Basophils 0.1 10^3/ul (0-0.2); ABS Lymphocytes 1.6 10^3/ul (1.0-4.8); ABS Monocytes 0.4 10^3/ul (0-0.8); ABS Neutrophils 5.6 10^3/ul (1.5-7.7); Eosinophil % 0.6 %; Hematocrit 43 % (42-52); Hemoglobin 14.2 g/dL (14.0-18.0); Lymphocyte % 21.1 %; Mean Corpuscular HGB Conc 33 g/dL (31-36); Mean Corpuscular Hemoglobin 28 pg (27-31); Mean Corpuscular Volume 86 fL (80-94); Platelet Count 351 10^3/uL (150-450); Red Blood Count 5.01 10^6 /uL (4.18-5.48); Red Cell Distribution Width 14 % (10-15); White Blood Count 7.8 10^3/uL (3.5-10.8)
[2021-02-02 03:32] LABS: Urine Benzodiazepine Screen None Detected (None Detect); Urine Cannabinoids Screen None Detected (None Detect); Urine Opiates Screen None Detected (None Detect)
[2021-02-02 03:33] LABS: Albumin 3.7 g/dL (3.2-5.2); Albumin/Globulin Ratio 1.1 (1-3); C Reactive Protein 9.49 mg/L (<8.01); Calcium 9.4 mg/dL (8.6-10.3); Globulin 3.5 g/dL (2-4); Potassium 4.5 mmol/L (3.5-5.0); Total Bilirubin 0.4 mg/dL (0.2-1.0); Total Protein 7.2 g/dL (6.4-8.9)
[2021-02-02] MEDS ORDERED: Iodixanol (CONTRAST) 320 MG/ML 100 ML SDV IV ONE (03:39)
[2021-02-02] MEDS: NS 0.9% 1000 ml BAG 2,000 ML IV ONE ×2 (04:32→05:44)
[2021-02-02 04:46] LABS: Venous Bicarbonate HCO3 27.1 mmol/L (24-28)
[2021-02-02] MEDS ORDERED: NS 0.9% 1000 ml BAG 1,000 ML IV SCH (05:00)
[2021-02-02] MEDS ORDERED: cefTRIAXone 2 GM ADDV.VIAL 2 GM in NS 0.9% 100 ml BAG 100 ML IVPB ONE (05:19)
[2021-02-02] MEDS ORDERED: Vancomycin per Pharmacy 1 EA NOTE FOLLOW UP PRN (05:31)
[2021-02-02] MEDS ORDERED: Vancomycin per Pharmacy 1 EA NOTE FOLLOW UP SCH (06:00)
[2021-02-02] MEDS ORDERED: Morphine 2 MG/ML SYRINGE IV ONE (06:06)
[2021-02-02 06:55] LABS: Rapid COVID-19 Molecular Undetected (Undetected)
[2021-02-02 07:02] LABS: Magnesium 1.8 mg/dL (1.9-2.7)
[2021-02-02] MEDS: metroNIDAZOLE IV 500 MG/100ML - ED ONCE IVPB ONE ×2 (08:03→08:48)
[2021-02-02] MEDS: Vancomycin 1,500 MG in NS 0.9% 250 ml 250 ML IVPB ONE ×2 (08:03→09:38)
[2021-02-02] MEDS ORDERED: Magnesium Sulfate 2 gm BAG 2 GM/50 ML BAG IVPB ONE (14:44)
[2021-02-02] MEDS ORDERED: Acetaminophen IV 1 GM/100ML 100 ML IV ONE (15:05)
[2021-02-02] MEDS: Acetaminophen IV 1 GM/100ML 100 ML IV PRN ×2 (15:08→23:42)
[2021-02-02] MEDS ORDERED: Dextrose 50% Syringe 50 ml 25 GM/50 ML SYRINGE IV PUSH PRN (15:21)
[2021-02-02 16:27] LABS: Calcium 8.6 mg/dL (8.6-10.3)
[2021-02-02] MEDS: metroNIDAZOLE IV 500 MG/100ML 500 MG/100 ML BAG IVPB SCH (16:40)
[2021-02-02] MEDS: Insulin GLARGINE 100 un/ml 10 ml VIAL SUBCUT SCH (20:57)
[2021-02-03] MEDS: metroNIDAZOLE IV 500 MG/100ML 500 MG/100 ML BAG IVPB SCH ×3 (01:02→16:55)
[2021-02-03] MEDS: cefTRIAXone 2 GM ADDV.VIAL 2 GM in NS 0.9% 100 ml BAG 100 ML IV SCH (06:04)
[2021-02-03 06:58] LABS: ABS Eosinophils 0.1 10^3/ul (0-0.6); ABS Monocytes 0.4 10^3/ul (0-0.8); ABS Neutrophils 3.2 10^3/ul (1.5-7.7); Eosinophil % 1.3 %; Hematocrit 42 % (42-52); Hemoglobin 14.2 g/dL (14.0-18.0); Lymphocyte % 35.5 %; Mean Corpuscular HGB Conc 34 g/dL (31-36); Mean Corpuscular Hemoglobin 29 pg (27-31); Mean Corpuscular Volume 85 fL (80-94); Mean Platelet Volume 8.8 fL (7.4-10.4); Nucleated Red Blood Cells % 0.2; Platelet Count 326 10^3/uL (150-450); Red Blood Count 4.99 10^6 /uL (4.18-5.48); Red Cell Distribution Width 14 % (10-15); White Blood Count 5.6 10^3/uL (3.5-10.8)
[2021-02-03 07:01] LABS: Calcium 8.6 mg/dL (8.6-10.3); Potassium 4.1 mmol/L (3.5-5.0)
[2021-02-03] MEDS: Insulin GLARGINE 100 un/ml 10 ml VIAL SUBCUT SCH (20:31)
[2021-02-03] MEDS: Acetaminophen IV 1 GM/100ML 100 ML IV PRN (20:32)
[2021-02-04] MEDS: metroNIDAZOLE IV 500 MG/100ML 500 MG/100 ML BAG IVPB SCH ×3 (00:42→17:08)
[2021-02-04] MEDS: cefTRIAXone 2 GM ADDV.VIAL 2 GM in NS 0.9% 100 ml BAG 100 ML IV SCH (06:29)
[2021-02-04] MEDS ORDERED: Dextrose 50% Syringe 50 ml 25 GM/50 ML SYRINGE IV PUSH PRN (07:25)
[2021-02-04] MEDS: Enoxaparin 40 MG/0.4 ML SYR SUBCUT SCH (10:18)
[2021-02-04] MEDS ORDERED: Ondansetron 4 mg VIAL 2 MG/ML 2 ml VIAL IV ONE (12:08)
[2021-02-04] MEDS ORDERED: Ondansetron 4 mg VIAL 2 MG/ML 2 ml VIAL ONE (12:13)
[2021-02-04] MEDS: Insulin GLARGINE 100 un/ml 10 ml VIAL SUBCUT SCH (21:09)
[2021-02-05] MEDS: metroNIDAZOLE IV 500 MG/100ML 500 MG/100 ML BAG IVPB SCH ×3 (01:43→16:39)
[2021-02-05] MEDS: cefTRIAXone 2 GM ADDV.VIAL 2 GM in NS 0.9% 100 ml BAG 100 ML IV SCH (05:25)
[2021-02-05 07:20] LABS: Hematocrit 44 % (42-52); Hemoglobin 14.4 g/dL (14.0-18.0); Mean Corpuscular HGB Conc 33 g/dL (31-36); Mean Corpuscular Hemoglobin 28 pg (27-31); Mean Corpuscular Volume 85 fL (80-94); Mean Platelet Volume 8.6 fL (7.4-10.4); Platelet Count 327 10^3/uL (150-450); Red Blood Count 5.12 10^6 /uL (4.18-5.48); Red Cell Distribution Width 14 % (10-15); White Blood Count 4.8 10^3/uL (3.5-10.8)
[2021-02-05 07:29] LABS: Calcium 8.8 mg/dL (8.6-10.3)
[2021-02-05 07:30] LABS: Magnesium 1.7 mg/dL (1.9-2.7)
[2021-02-05 08:38] LABS: C Reactive Protein 11.08 mg/L (<8.01)
[2021-02-05] MEDS: Enoxaparin 40 MG/0.4 ML SYR SUBCUT SCH (09:40)
[2021-02-05 12:54] LABS: Glucose Confirmatory 401 mg/dL (70-100)
[2021-02-05] MEDS ORDERED: Magnesium Sulfate IV 3 GM in NS 0.9% 100 ml BAG 100 ML IVPB ONE (14:30)
[2021-02-05] MEDS ORDERED: Dextrose 50% Syringe 50 ml 25 GM/50 ML SYRINGE IV PUSH PRN (14:49)
[2021-02-05] MEDS: Insulin GLARGINE 100 un/ml 10 ml VIAL SUBCUT SCH (22:17)
[2021-02-06] MEDS: metroNIDAZOLE IV 500 MG/100ML 500 MG/100 ML BAG IVPB SCH ×3 (02:24→17:24)
[2021-02-06] MEDS: cefTRIAXone 2 GM ADDV.VIAL 2 GM in NS 0.9% 100 ml BAG 100 ML IV SCH (05:36)
[2021-02-06] MEDS: Enoxaparin 40 MG/0.4 ML SYR SUBCUT SCH (09:12)
[2021-02-06 09:37] LABS: Calcium 8.8 mg/dL (8.6-10.3); Magnesium 1.9 mg/dL (1.9-2.7); Potassium 4.3 mmol/L (3.5-5.0)
[2021-02-06] MEDS: Insulin GLARGINE 100 un/ml 10 ml VIAL SUBCUT SCH (21:24)
[2021-02-07] MEDS: metroNIDAZOLE IV 500 MG/100ML 500 MG/100 ML BAG IVPB SCH ×3 (00:54→18:02)
[2021-02-07] MEDS: cefTRIAXone 2 GM ADDV.VIAL 2 GM in NS 0.9% 100 ml BAG 100 ML IV SCH (06:33)
[2021-02-07 08:44] LABS: Calcium 8.9 mg/dL (8.6-10.3); Magnesium 1.6 mg/dL (1.9-2.7); Potassium 4.4 mmol/L (3.5-5.0)
[2021-02-07] MEDS: Enoxaparin 40 MG/0.4 ML SYR SUBCUT SCH (09:10)
[2021-02-07] MEDS ORDERED: Magnesium Sulf 4 GM/100 ML IV 4,000 MG/100 ML BAG IVPB ONE (11:50)
[2021-02-07] MEDS: Insulin GLARGINE 100 un/ml 10 ml VIAL SUBCUT SCH (21:48)
[2021-02-08] MEDS: metroNIDAZOLE IV 500 MG/100ML 500 MG/100 ML BAG IVPB SCH ×3 (00:49→17:21)
[2021-02-08 05:25] LABS: Hematocrit 41 % (42-52); Hemoglobin 13.4 g/dL (14.0-18.0); Mean Corpuscular HGB Conc 33 g/dL (31-36); Mean Corpuscular Hemoglobin 28 pg (27-31); Mean Corpuscular Volume 85 fL (80-94); Mean Platelet Volume 8.6 fL (7.4-10.4); Platelet Count 307 10^3/uL (150-450); Red Blood Count 4.78 10^6 /uL (4.18-5.48); Red Cell Distribution Width 14 % (10-15); White Blood Count 5.1 10^3/uL (3.5-10.8)
[2021-02-08 05:42] LABS: Magnesium 1.7 mg/dL (1.9-2.7); Potassium 4.3 mmol/L (3.5-5.0)
[2021-02-08] MEDS: cefTRIAXone 2 GM ADDV.VIAL 2 GM in NS 0.9% 100 ml BAG 100 ML IV SCH (06:09)
[2021-02-08] MEDS ORDERED: Magnesium Sulfate 2 gm BAG 2 GM/50 ML BAG IVPB ONE (07:20)
[2021-02-08] MEDS: Enoxaparin 40 MG/0.4 ML SYR SUBCUT SCH (09:50)
[2021-02-08] MEDS: Insulin GLARGINE 100 un/ml 10 ml VIAL SUBCUT SCH (23:11)
[2021-02-09] MEDS: metroNIDAZOLE IV 500 MG/100ML 500 MG/100 ML BAG IVPB SCH ×3 (01:46→15:00)
[2021-02-09] MEDS: cefTRIAXone 2 GM ADDV.VIAL 2 GM in NS 0.9% 100 ml BAG 100 ML IV SCH (05:44)
[2021-02-09 07:37] LABS: Calcium 8.9 mg/dL (8.6-10.3); Magnesium 1.6 mg/dL (1.9-2.7); Potassium 4.2 mmol/L (3.5-5.0)
[2021-02-09] MEDS ORDERED: Magnesium Sulf 4 GM/100 ML IV 4,000 MG/100 ML BAG IVPB ONE (08:10)
[2021-02-09] MEDS: Enoxaparin 40 MG/0.4 ML SYR SUBCUT SCH (09:03)
[2021-02-09 11:50] VITALS: BP 116/70
[2021-02-09] MEDS ORDERED: Buffered Lidocaine 1% SYRIN 1 ml INTRADERM ONE (15:04)
== END 2021-02-09 12:05 | disposition swing bed (61) | DRG 602 ==
LOC: ED 01:59 → ICU 06:21 → SUATTDRO 07:46 → SSU 02-04 17:57
PROVIDERS: ADMIT Internal Medicine; ATTEND Internal Medicine

== ENCOUNTER 2021-02-09 15:25 | Inpatient (IN) ==
[2021-02-09] MEDS ORDERED: Dextrose 50% Syringe 50 ml 25 GM/50 ML SYRINGE IV PUSH PRN ×2 (15:47→15:48)
[2021-02-09] MEDS: Insulin GLARGINE 100 un/ml 10 ml VIAL SUBCUT SCH (21:14)
[2021-02-09] MEDS: metroNIDAZOLE IV 500 MG/100ML 500 MG/100 ML BAG IVPB SCH (22:26)
[2021-02-10] MEDS: cefTRIAXone 1 gm/50 mL NS BAG 1 GM/50 ML BAG IVPB SCH (05:52)
[2021-02-10] MEDS: metroNIDAZOLE IV 500 MG/100ML 500 MG/100 ML BAG IVPB SCH ×3 (06:13→22:17)
[2021-02-10] MEDS ORDERED: Enoxaparin 40 MG/0.4 ML SYR SUBCUT SCH (09:00)
[2021-02-10] MEDS: Insulin GLARGINE 100 un/ml 10 ml VIAL SUBCUT SCH (19:29)
[2021-02-11] MEDS: cefTRIAXone 1 gm/50 mL NS BAG 1 GM/50 ML BAG IVPB SCH (05:03)
[2021-02-11] MEDS: metroNIDAZOLE IV 500 MG/100ML 500 MG/100 ML BAG IVPB SCH ×3 (05:38→22:10)
[2021-02-11] MEDS: Insulin GLARGINE 100 un/ml 10 ml VIAL SUBCUT SCH (20:27)
[2021-02-12] MEDS: cefTRIAXone 1 gm/50 mL NS BAG 1 GM/50 ML BAG IVPB SCH (05:03)
[2021-02-12] MEDS: metroNIDAZOLE IV 500 MG/100ML 500 MG/100 ML BAG IVPB SCH ×3 (05:50→21:46)
[2021-02-12] MEDS: Insulin GLARGINE 100 un/ml 10 ml VIAL SUBCUT SCH (21:40)
[2021-02-13] MEDS: cefTRIAXone 1 gm/50 mL NS BAG 1 GM/50 ML BAG IVPB SCH (05:03)
[2021-02-13] MEDS: metroNIDAZOLE IV 500 MG/100ML 500 MG/100 ML BAG IVPB SCH (05:40)
[2021-02-13] MEDS ORDERED: Fluticasone NASAL SPRAY 50MCG 16 gm SPRAY BTL BOTH NARES SCH (09:00)
[2021-02-13] MEDS ORDERED: DALBAVANCIN HCL (NF) 500 MG/25 ML VIAL IVPB ONE (14:49)
[2021-02-13] MEDS ORDERED: DALVANCE 1500 MG IV ONCE (for CrCl >/= 30 or regular HD) IVPB ONE (15:00)
[2021-02-13 19:26] VITALS: BP 134/82
== END 2021-02-13 16:30 | disposition left against medical advice (07) | DRG 603 ==
LOC: SSU 15:25 → SUATTDRO 15:42 → MCHPEDS 02-10 16:30 → MED 02-12 16:44
PROVIDERS: ADMIT Internal Medicine; ATTEND Student in an Organized Health Care Education/Training Program